=== PATIENT | female | born 2000 ===

== ENCOUNTER 2023-09-17 18:01 | Emergency (ER) | payer BC, SELFPAY ==
[2023-09-17 18:01] VITALS: BMI 26.3
[2023-09-17 18:04] VITALS: BP 134/84
[2023-09-17] MEDS: NSS 1000 IV (18:30)
--- NOTE | 2023-09-17 18:41 | ED.GENMED ---
History of Present Illness
General
Chief Complaint: Abdominal Symptoms
Source: patient
Exam Limitations: none
Time Seen by Provider: 09/17/23 18:12
Nursing documentation reviewed up to this point in time: agreed with
Travel History
Have you had any contact with someone who has COVID-19?: No
Do you have any symptoms of coronavirus? Fever > 100 degrees, chills, cough, shortness of breath, sore throat, loss of taste or smell, muscle aches, or headache?: No
History of Present Illness
History of Present Illness:
23 yo female w h/o ovarian cyst presents for gradually increasing RLQ pain over past week. Pain has been low and dull until today 3-4/10 when still, now 7-8/10 with movement. Had a diarrheal stool earlier and pain much worse since. Has no appetite.
Denies fever. Denies CP or trouble breathing. Denies UTI symptoms.
Past History
Past History
ED Past Medical History: None
ED Past Surgical History: Tonsilectomy
Social History
Tobacco: Vaping
Alcohol: None
Drug: Marijuana
Personal: Single
Living: with family
Review of Systems
Review of Systems
Allergies reviewed?: Yes
All Other Systems: ROS reviewed and negative except as documented in HPI and ROS
Constitutional: Denies fever
Respiratory: Denies trouble breathing
Cardiac: Denies chest pain
ABD/GI: Reports abdominal pain, nausea, diarrhea and anorexia; Denies vomiting, bloody stools or black stools
: Denies dysuria, frequency, flank pain, difficulty voiding or urgency
Musculoskeletal: Reports no symptoms
Skin: Reports no symptoms
Neurological: Reports no symptoms
Phy Exam
Physical Exam
Physical Exam:
GENERAL: No acute distress. A&Ox3.
CONSTITUTIONAL: Afebrile.
EYES: clear, conjunctivae normal
ENMT: moist mucus membranes, Pharynx nl
RESPIRATORY: Regular respirations, nonlabored, lungs clear.
CARDIOVASCULAR: Regular rate and rhythm, no murmurs, no rubs.
GI: Soft, mid abd to RLQ tenderness, normal BS
MUSCULOSKELETAL: Moves with ease. Well perfused.
SKIN: Warm, dry, pink
PSYCH: Normal mood and affect. Well kept, interactive and appropriate
NEUROLOGIC: Awake, alert and oriented. No focal neurological deficits
Course
Orders/Labs/Results
Orders:
Orders
09/17/23 18:20
US Abdomen - Appendix Only Urgent
Comment:
Reason For Exam: RLQ pain
US Pelvis Only (non-obstetric) Urgent
Comment:
Reason For Exam: RLQ pain hx ovarian cyst R
09/17/23 18:21
0.9% Sodium Chloride 1000 ml [Nss] 1,000 ml IV BOLUS
09/17/23 18:38
Complete Blood Count/With Diff Urgent
Comprehensive Metabolic Panel Urgent
HCG, Urine Qualitative Screen Urgent
Date Specimen was Collected: 09/17/23
Time Specimen was Collected: 18:29
Comment: ADD ON
Urinalysis Reflex To Culture Urgent
Date Specimen was Collected: 09/17/23
Time Specimen was Collected: 18:29
09/17/23 18:44
Iohexol [Omnipaque] See Protocol PO NOW STA
09/17/23 19:02
Add On- LAB Urgent
Tests Added?: urine HCG
09/17/23 21:25
CT Abd/pel W Iv And Oral Contr Urgent
Comment:
Reason For Exam: RLQ pain
Iohexol [Omnipaque] See Protocol PO NOW STA
09/17/23 22:47
Ketorolac [Toradol] 15 mg IV NOW STA
Abnormal Lab Results
09/17/23
18:38
MPV 11.2 H fL
(7.4-10.4)
Total Bilirubin 3.2 H mg/dl
(0.2-1.3)
Urine Ketones Trace A
(Negative)
09/17/23 18:38
09/17/23 18:38
Vital Signs
Initial and Last Documented VS:
Initial Vital Signs
Temp Pulse Resp BP Pulse Ox
98.3 F 67 20 134/84 99
09/17/23 18:04 09/17/23 18:04 09/17/23 18:04 09/17/23 18:04 09/17/23 18:04
Last Documented Vital Signs
Temp Pulse Resp BP Pulse Ox
98.3 F 61 18 114/67 100
09/17/23 18:04 09/17/23 22:11 09/17/23 22:11 09/17/23 22:11 09/17/23 22:11
MDM/Problems Addressed
Differential Diagnosis Includes:
Ovarian cyst, appendicitis
MDM/Problems Addressed:
23 yo female w h/o ovarian cyst presents for gradually increasing RLQ pain over past week. Pain has been low and dull until today 3-4/10 when still, now 7-8/10 with movement. Had a diarrheal stool earlier and pain much worse since. Has no appetite.
Denies fever. Denies CP or trouble breathing. Denies UTI symptoms.
Afebrile
7:00 PM
CBC normal
CMP bilirubin 3.2 otherwise normal, has been mildly high in the past (Gilbert's syndrome?)
Urinalysis: Negative
hCG negative
Ultrasound pelvis radiology report read: Unremarkable
Ultrasound appendix: Unremarkable
Re examination of abdomen: moderate pain RLQ, no RUQ pain with palpation, will proceed to CT scan
11:[address] scan abdomen pelvis with IV and p.o. contrast radiology report read: No acute significant finding
Patient states she has taken nothing for the pain. IV Toradol given and recommended ibuprofen, she will follow-up with her [facility] doctor.
*Critical Care Note
Total Time (30-74mins, 75-104mins- exclusive of procedures): Not Applicable
ED Attending Note
-
Portions of this chart may have been created with voice recognition software.� Occasional wrong word or��sound alike� substitutions may have occurred due to the inherent limitations of voice recognition software.
Discharge Plan
Departure
Patient Disposition: Home (Routine Discharge)
Date of Disposition: 09/17/23
Time of Disposition: 22:49
Patient with high blood pressure during this ER visit?: No
Condition: Good
Discharge Problem:
Abdominal pain
Instructions: Abdominal Pain
Referrals:
Renuka Connolly, DO [Family Provider] - As needed
Activity Restrictions/Additional Instructions:
As we discussed, nothing worrisome in your workup here today.
See your family doctor or your [facility] doctor in 4-5 days if your pain is not gone by then.
Take Ibuprofen 600 mg (with food) every 6 hours as needed for pain.
Interventions
Interventions:
*Risk Screen - Suicide Last Done: 09/17/23 18:04
*General Assessment Last Done: 09/17/23 18:04
*Neglect/Abuse Screening Last Done: 09/17/23 18:04
*Nursing Disposition Last Done: 09/17/23 23:03
AV-Uatgit-Kcppmmembb Assessment Last Done: 09/17/23 19:25
Discharge Date and Time
Discharge Date/Time: 09/17/23 23:04
Print Language: FRENCH
[2023-09-17 18:50] LABS: % Eosinophils 4.5 % (0-6); % Immature Granulocytes 0.1 % (0-0.5); % Lymphocytes 30.3 % (20.5-51.1); % Monocytes 6.9 % (1.7-9.3); % Neutrophils 57.2 % (42.2-75.2); Absolute Basophils 0.1 10^3/uL (0-0.2); Absolute Eosinophils 0.4 10^3/uL (0-0.7); Absolute Lymphocytes 2.7 10^3/uL (1.2-3.4); Absolute Monocytes 0.6 10^3/uL (0.1-0.6); Absolute Neutrophils 5.2 10^3/uL (1.4-6.5); Hematocrit 39.7 % (37.0-47.0); Hemoglobin 13.7 g/dL (12.0-16.0); Mean Corp Hgb Conc. 34.5 g/dL (33.0-37.0); Mean Corpuscular Hgb 30.8 pg (27.0-31.0); Mean Corpuscular Volume 89.2 fL (81.0-99.0); Mean Platelet Volume 11.2 fL (7.4-10.4); Nucleated Red Blood Cells % 0 %; Platelet Count 228 10^3/uL (130-400); Red Blood Cell Count 4.45 10^6/uL (4.20-5.40); Red Cell Dist. Width 12.5 % (11.5-14.5)
[2023-09-17] MEDS: OMNIPAQUE 50 ML PO (18:53)
[2023-09-17 18:58] LABS: Urine Albumin Negative (Neg - Trace); Urine Bilirubin Negative (Negative); Urine Character Clear (Clear); Urine Color Yellow; Urine Glucose Negative (Negative); Urine Ketone Trace (Negative); Urine Leukocyte Negative (Negative); Urine Nitrite Negative (Negative); Urine Occult Blood Negative (Negative); Urine Specific Gravity 1.005 (<1.030); Urine Urobilinogen Negative (Neg - 1+)
[2023-09-17 19:04] LABS: ALT (SGPT) 16 U/L (0-35); AST (SGOT) 23 U/L (14-36); Albumin 4.6 g/dl (3.5-5.0); Alkaline Phosphatase 65 U/L (38-126); Blood Urea Nitrogen 9 mg/dl (7-17); Carbon Dioxide 25 mmol/L (22-30); Chloride 102 mmol/L (98-107); Estimated Creatinine Clearance 103 ml/min; Glucose 89 mg/dl (70-99); Potassium 4.1 mmol/L (3.5-5.1); Sodium 135 mmol/L (135-145); Total Bilirubin 3.2 mg/dl (0.2-1.3); Total Protein 6.9 g/dl (6.3-8.2); eGFR > 60.00
[2023-09-17 19:30] LABS: HCG, Urine Qualitative Screen Negative
[2023-09-17 22:11] VITALS: BP 114/67
[2023-09-17] MEDS: TORADOL 15 MG IV (22:55)
== END 2023-09-17 23:04 | disposition home or self-care (01) ==
LOC: EMR 18:01
PROVIDERS: Registered Nurse; EMERGENCY PHYSICIAN Emergency Medicine; FAMILY PHYSICIAN Family Medicine
DX: R10.31 Right lower quadrant pain (principal); R19.7 Diarrhea, unspecified; F17.290 Nicotine dependence, other tobacco product, uncomplicated
CPT/HCPCS: 99284; 96374; 96361; 74177; 76705; 76856; 80053; 81003; 81025; 85025; Q9967

== ENCOUNTER 2024-04-21 11:17 | Emergency (ER) | payer BC, SELFPAY ==
[2024-04-21 11:20] VITALS: BP 139/84
--- NOTE | 2024-04-21 13:25 | ED.GENMED ---
History of Present Illness
<Tarik Finch DO, Resident - Last Filed: 04/21/24 14:39>
General
Chief Complaint: Headache
Source: patient
Time Seen by Provider: 04/21/24 12:55
History of Present Illness
History of Present Illness:
23-year-old female past medical history significant for reflux presents for severe headache, pins and needle sensation and dizziness. Patient reports she has had a headache for approximately 6 months, her headache is bilateral at the occiput, she
reports that she does have difficulty looking at lights during the episodes, also reports she is not able to function during these episodes. Patient reports her headache started about 6 months ago and was present for 3 months, unremitting
eventually it resolved, however has returned. Patient also reports she is having numbness and tingling sensations throughout her extremities, as right now she is endorsing right-sided hand and leg numbness and tingling. She reports previously she
had them in her left arm and left leg, these episodes are by time. Patient reports they started approximately 3 days ago. She says that it is either the entire left side of her body, upper and lower extremity or the right side, upper
lower extremity. Patient reports numbness and tingling switches sides. Patient reports she was seen by her primary physician who treated her with doxycycline as they thought she had an ear infection, she was endorsing ear pain at the time. She
followed up with the ENT who examined her, decided she did not have an ear infection and discontinue doxycycline. Patient denies falls, no fever. Patient reports she has seen her primary care in the past, they were unable to give her diagnosis and
attributed to anxiety.
Past History
<Tarik Finch DO, Resident - Last Filed: 04/21/24 14:39>
Past History
ED Past Medical History: None
ED Past Surgical History: Tonsilectomy
Social History
Tobacco: Vaping
Alcohol: None
Drug: Marijuana
Personal: Single
Living: with family
Review of Systems
<Tarik Finch DO, Resident - Last Filed: 04/21/24 14:39>
Review of Systems
Constitutional: Denies fever
Respiratory: Reports no symptoms
Cardiac: Reports no symptoms
ABD/GI: Reports no symptoms
: Reports no symptoms
Neurological: Reports headache (Bilateral at occiput, radiating down back of neck), weakness and numbness (Numbness and tingling, right upper and right lower extremity)
Phy Exam
<Tarik Finch DO, Resident - Last Filed: 04/21/24 14:39>
General Physical Exam
General Presentation: moderate distress
General Skin: warm and dry
General Mental: tearful
Eye Exam
Eye Exam: EOMI and visual acuity normal
Cardiovascular Exam
Cardiovascular Exam: regular rate/rhythm, no edema and no murmur
Pulmonary Exam
Pulmonary Exam: lungs clear, no respiratory distress, no crackles and no wheezing
Gastrointestinal Exam
Gastrointestinal Exam: non tender, soft and non distended
Neurological Exam
Neurological Exam: alert, oriented x3, CN II-XII intact, no motor deficits, no sensory deficits, speech normal and normal gait
Course
<Tarik Finch DO, Resident - Last Filed: 04/21/24 14:39>
Orders/Labs/Results
Orders:
Orders
04/21/24 13:33
CT Head W/o Iv Contrast Urgent
Comment:
Reason For Exam: Headache, numbness and tingling. Check for MS
04/21/24 13:39
Test Result ONCE
04/21/24 13:48
Complete Blood Count/No Diff Urgent
Comprehensive Metabolic Panel Urgent
HCG, Serum Qualitative Screen Urgent
Magnesium Urgent
04/21/24 13:50
Orthostatic VS- Treatment ONCE
Abnormal Lab Results
04/21/24
13:48
MPV 11.4 H fL
(7.4-10.4)
Carbon Dioxide 21 L mmol/L
(22-30)
Magnesium 2.4 H mg/dl
(1.6-2.3)
Total Bilirubin 1.9 H mg/dl
(0.2-1.3)
04/21/24 13:48
04/21/24 13:48
Vital Signs
Initial and Last Documented VS:
Initial Vital Signs
Temp Pulse Resp BP Pulse Ox
98.4 F 74 18 139/84 99
04/21/24 11:20 04/21/24 11:20 04/21/24 11:20 04/21/24 11:20 04/21/24 11:20
Last Documented Vital Signs
Temp Pulse Resp BP Pulse Ox
98.4 F 74 18 139/84 99
04/21/24 11:20 04/21/24 11:20 04/21/24 11:20 04/21/24 11:20 04/21/24 11:20
<Bhavna Velasco MD - Last Filed: 04/21/24 15:51>
Orders/Labs/Results
Orders:
Orders
04/21/24 13:33
CT Head W/o Iv Contrast Urgent
Comment:
Reason For Exam: Headache, numbness and tingling. Check for MS
04/21/24 13:39
Test Result ONCE
04/21/24 13:48
Complete Blood Count/No Diff Urgent
Comprehensive Metabolic Panel Urgent
HCG, Serum Qualitative Screen Urgent
Magnesium Urgent
04/21/24 13:50
Orthostatic VS- Treatment ONCE
Abnormal Lab Results
04/21/24
13:48
MPV 11.4 H fL
(7.4-10.4)
Carbon Dioxide 21 L mmol/L
(22-30)
Magnesium 2.4 H mg/dl
(1.6-2.3)
Total Bilirubin 1.9 H mg/dl
(0.2-1.3)
04/21/24 13:48
04/21/24 13:48
Vital Signs
Initial and Last Documented VS:
Initial Vital Signs
Temp Pulse Resp BP Pulse Ox
98.4 F 74 18 139/84 99
04/21/24 11:20 04/21/24 11:20 04/21/24 11:20 04/21/24 11:20 04/21/24 11:20
Last Documented Vital Signs
Temp Pulse Resp BP Pulse Ox
98.4 F 74 18 139/84 99
04/21/24 11:20 04/21/24 11:20 04/21/24 11:20 04/21/24 11:20 04/21/24 11:20
<Tarik Finch DO, Resident - Last Filed: 04/21/24 14:39>
MDM/Problems Addressed
Differential Diagnosis Includes:
Multiple sclerosis, functional neurologic disorder, migraine,
MDM/Problems Addressed:
Patient reporting odd constellation of symptoms. Starting with headache, bilateral at the occiput, with radiation down the back of the neck, described as tightness. Patient reports headache started about 6 months ago lasted for about 3 months,
went away and subsequently returned
Patient also reporting jald-nih-evjqjhu, starting last 3 days. She reports these symptoms will affect either the right leg and arm, or the left leg and arm. These symptoms will change day-to-day.
Patient also endorsing some dizziness, worse when standing
Patient reports she has seen her primary care physician for this, they were unsure what was going on and attributed to anxiety. She previously was endorsing ear pain, PCP started her on doxycycline. Patient was evaluated by ENT who did not believe
she has an ear infection and discontinue doxycycline.
Unsure etiology of the symptoms. Could possibly be related to MS. Her symptoms are by time and space, young woman. Could also be migraine or functional neurologic disorder.
Suspicion for migraine low, headache is bilateral, no aura. Patient also endorses she was never diagnosed with migraines
Will check CT head noncontrast
Will check orthostatic vitals
Will check CBC, CMP, magnesium, urine test
Magnesium returned high, 2.4. Hematology within normal limits, hemoglobin 13.1, WBC 7. Potassium 4.4
<Tarik Finch DO, Resident - Last Filed: 04/21/24 14:39>
*Critical Care Note
Total Time (30-74mins, 75-104mins- exclusive of procedures): Not Applicable
ED Attending Note
<Tarik Finch DO, Resident - Last Filed: 04/21/24 14:39>
-
Portions of this chart may have been created with voice recognition software.� Occasional wrong word or��sound alike� substitutions may have occurred due to the inherent limitations of voice recognition software.
<Bhavna Velasco MD - Last Filed: 04/21/24 15:51>
ED Attending Note
Patient seen and examined by attending physician: Yes
I performed the substantive portion of visit, reviewed & personally made and approve the management plan that is documented in note by myself or LUCY.: Yes
I performed a history and physical exam of patient and discussed management with resident, I reviewed resident's note and agree with documented findings and plan of care.: Yes
ED Attending Note:
This patient is a 23-year-old female who presents emergency department with complaints of headache that started 1 month ago. She describes it as feeling like a 'rubber band' isolated in an area in the back of her head that will sometimes radiate to
the back of her neck in the shape of a 'atka'. This was gradual in onset, has been constant for the past month, will wax and wane in intensity but seems to be worse at night. There are no provoking or relieving factors and is not positional.
She believes this headache started around the time that she started her new oral contraceptive. Then, 3 days ago, she started develop episodes where she felt 'vipf-gni-dfyswbd' in her legs on and off. Episodes will last 20 minutes to 2 hours at a
time without specific provoking or relieving factors. She denies motor weakness, rash, fever, chills, change in vision, change in speech, trauma. In regards to dizziness she said she momentarily will sometimes feel dizzy when she sits upright
otherwise no dizziness or sense of spinning. She denies anorexia, nausea, vomiting, diplopia. Last menstrual period is today. Patient states that the nwpl-ufh-hpmxhgs will sometimes be in 1 extremity, and then another, but never both sides at the
same time. On exam, GENERAL: Alert , in no apparent distress
EYE: pupils equal and reactive, no nystagmus, no photophobia, EOMI
NECK: Supple, no significant adenopathy.
ENT: o/p clr, mmm.
CARDIAC: Regular rate and rhythm .
LUNGS: Clear breath sounds bilaterally, no acute respiratory distress, no wheezes/rales/rhonchi
ABDOMEN: Soft, without focal tenderness, no r/g, no cvat
NEUROLOGICAL: Alert and oriented, no focal neuro deficits, gait normal, visual patterson intact, ghnpys-[id number] normal, motor 5 out of 5, sensory intact, cranial nerves II through XII intact
SKIN: Warm and dry, skin intact.
MUSCULOSKELETAL: No edema, well perfused.
PSYCH: Normal and appropriate interaction.
Patient presents to the Emergency Department with __headache with [id number]
Number and Complexity of Problems Addressed at the Encounter
� Chronic conditions affecting care:
� Acute Exacerbation and/or Progression of Chronic Illness:
� Differential Diagnosis includes: But not limited to medication reaction, electrolyte disorder, migraine, MS, etc. etc.
Amount and/or Complexity of Data to be Reviewed and Analyzed
� I performed an independent evaluation of and my interpretation is:
EKG:
CT: head ct nad
Xrays:
Laboratory Studies:
Other:
� Review of other/old records reveals:
� Clinical information was obtained by an independent historian:
� Prescriptions/Medications Considered but not given:
� Further testing considered but not performed:
Risk of Complications and/or Morbidity or Mortality of Patient Management
� Social determinants of health affecting care:
� Discussion with other providers (PCP, Hospitalists, Consultants, etc):
� Escalation of care including admission/observation vs risk of discharge considered: Patient remains comfortable here, NIH equal to 0, no acute neurofindings. Discussed with patient importance of follow-up and reasons return to
the ER.
Discharge Plan
Departure
Patient Disposition: Home (Routine Discharge)
Date of Disposition: 04/21/24
Time of Disposition: 15:48
Patient with high blood pressure during this ER visit?: Yes
Condition: Good
Discharge Problem:
Headache
Instructions: Headache, Adult (DC), BLOOD PRESSURE
Referrals:
Renuka Connolly, DO [Family Provider] - Tomorrow
Activity Restrictions/Additional Instructions:
IF YOU DEVELOP FEVER, CHILLS, NUMBNESS, INCREASING NEW OR PERSISTENT PAIN, VISUAL CHANGES, WEAKNESS, OR OTHER WORRISOME SIGNS, PLEASE RETURN TO THE ER IMMEDIATELY.
Interventions
Interventions:
*Risk Screen - Suicide Last Done: 04/21/24 11:20
*General Assessment Last Done: 04/21/24 11:20
*Neglect/Abuse Screening Last Done: 04/21/24 11:20
ED- Neurological Assessment Last Done: 04/21/24 13:46
Discharge Date and Time
Print Language: MAURITANIAN
[2024-04-21 13:48] VITALS: BMI 27.9
[2024-04-21 14:08] VITALS: BP 108/65; BP 109/76; BP 110/66
[2024-04-21 14:15] LABS: Hematocrit 37.7 % (37.0-47.0); Hemoglobin 13.1 g/dL (12.0-16.0); Mean Corp Hgb Conc. 34.7 g/dL (33.0-37.0); Mean Corpuscular Hgb 30.3 pg (27.0-31.0); Mean Corpuscular Volume 87.3 fL (81.0-99.0); Mean Platelet Volume 11.4 fL (7.4-10.4); Platelet Count 216 10^3/uL (130-400); Red Blood Cell Count 4.32 10^6/uL (4.20-5.40); Red Cell Dist. Width 12.4 % (11.5-14.5)
[2024-04-21 14:30] LABS: HCG, Serum Qualitative Screen Negative
[2024-04-21 14:34] LABS: ALT (SGPT) 17 U/L (0-35); AST (SGOT) 24 U/L (14-36); Albumin 4.8 g/dl (3.5-5.0); Alkaline Phosphatase 44 U/L (38-126); Blood Urea Nitrogen 12 mg/dl (7-17); Calcium 9.9 mg/dl (8.4-10.2); Carbon Dioxide 21 mmol/L (22-30); Chloride 103 mmol/L (98-107); Estimated Creatinine Clearance > 125 ml/min; Glucose 82 mg/dl (70-99); Magnesium 2.4 mg/dl (1.6-2.3); Potassium 4.4 mmol/L (3.5-5.1); Sodium 137 mmol/L (135-145); Total Bilirubin 1.9 mg/dl (0.2-1.3); Total Protein 7.2 g/dl (6.3-8.2); eGFR > 60.00
[2024-04-21 15:55] VITALS: BP 108/61
== END 2024-04-21 15:56 | disposition home or self-care (01) ==
LOC: EMR 11:17
PROVIDERS: EMERGENCY PHYSICIAN Emergency Medicine; FAMILY PHYSICIAN Family Medicine
DX: R51.9 Headache, unspecified (principal); R42 Dizziness and giddiness; R20.0 Anesthesia of skin; R20.2 Paresthesia of skin; R53.1 Weakness; R03.0 Elevated blood-pressure reading, without diagnosis of hypertension; F17.290 Nicotine dependence, other tobacco product, uncomplicated; K21.9 Gastro-esophageal reflux disease without esophagitis; Z91.018 Allergy to other foods; Z88.0 Allergy status to penicillin
CPT/HCPCS: 99284; 70450; 80053; 83735; 84703; 85027